=== PATIENT | female | born 1990 | race Two or more races ===

== ENCOUNTER 2018-01-07 15:28 | Emergency (ER) | payer OTHER ==
[~2018-01-07] VITALS: Ht 162.6 cm; Wt 59.0 kg
--- NOTE | 2018-01-07 16:03 | NUR ---
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 VSS TIKA RR EVEN AND UNLABORED.
--- NOTE | 2018-01-07 16:03 | NUR ---
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 VSS TIKA RR EVEN AND UNLABORED.
[2018-01-07 16:06] LABS: BASOPHILS # (AUTO) 0.2 /CMM (0.0-0.2); BASOPHILS % (AUTO) 2.2 % (0.0-2.0); EOSINOPHILS # (AUTO) 0.3 /CMM (0.0-0.7); EOSINOPHILS % (AUTO) 2.9 % (0.0-6.0); HEMATOCRIT 39 % (33-45); HEMOGLOBIN 13.4 g/dL (11.5-14.8); LYMPHOCYTES # (AUTO) 1.9 /CMM (0.8-4.8); LYMPHOCYTES % (AUTO) 21.5 % (20.0-44.0); MEAN CORPUSCULAR HEMOGLOBIN 29 PG (26.0-33.0); MEAN CORPUSCULAR HGB CONC 35 g/dl (31.0-36.0); MEAN CORPUSCULAR VOLUME 85 fL (82-100); MONOCYTES # (AUTO) 0.3 /CMM (0.1-1.30); MONOCYTES % (AUTO) 3.2 % (2.0-12.0); NEUTROPHILS # (AUTO) 5.9 /CMM (1.8-8.9); NEUTROPHILS % (AUTO) 70.2 % (43.0-81.0); PLATELET COUNT (AUTO) 359 /CMM (150-450); RDW COEFFICIENT OF VARIATION 12.6 (11.5-15.0); RED BLOOD CELL COUNT(AUTO) 4.58 MIL/uL (4.0-5.2); WHITE BLOOD COUNT (AUTO) 8.6 K/uL (4.3-11.0)
[2018-01-07 16:16] LABS: CALCIUM, SERUM 8.9 mg/dL (8.5-10.1); CARBON DIOXIDE 28 mmol/L (21-32); CHLORIDE 104 mmol/L (98-107); CREATININE 0.6 mg/dL (0.6-1.3); GLUCOSE 87 mg/dL (74-106); POTASSIUM 3.7 mmol/L (3.5-5.1); SODIUM SERUM 138 mmol/L (136-145); UREA NITROGEN, BLOOD 10 mg/dL (7-18)
[2018-01-07 16:24] LABS: TROPONIN I < 0.017 ng/mL (0.00-0.056)
[2018-01-07 16:25] LABS: D-DIMER 0.19 mg/L(FEU (0.17-0.50); INR 0.93 (0.87-1.13)
--- NOTE | 2018-01-07 17:10 | NUR ---
IV removed. Catheter intact and site benign. Pressure and 4x4 applied to site. No bleeding noted.Patient discharged to home in stable condition. Written and verbal after care instructions given. Patient verbalizes understanding of instruction.
[2018-01-07 17:12] VITALS: BP 108/68
== END 2018-01-07 17:13 | disposition home or self-care (01) ==
LOC: ER 15:31
DX: R07.89 Other chest pain (principal); R20.0 Anesthesia of skin
CPT/HCPCS: 36415; 71045-TC; 80048-TC; 84484-TC; 85025-TC; 85378-TC; 85730-TC; A4606; Z7610

== ENCOUNTER 2018-12-04 22:39 | Emergency (ER) | payer OTHER ==
[~2018-12-04] VITALS: Ht 162.6 cm; Wt 60.3 kg
--- NOTE | 2018-12-04 22:50 | NUR ---
URINE COLLECTED AND SENT TO LAB
--- NOTE | 2018-12-04 23:00 | NUR ---
PT IS AWAITING US.
[2018-12-04 23:16] LABS: BASOPHILS % (AUTO) 0.1 % (0.0-2.0); EOSINOPHILS % (AUTO) 2.2 % (0.0-6.0); HEMATOCRIT 38 % (33-45); HEMOGLOBIN 13.1 g/dL (11.5-14.8); LYMPHOCYTES # (AUTO) 2.6 /CMM (0.8-4.8); LYMPHOCYTES % (AUTO) 28.6 % (20.0-44.0); MEAN CORPUSCULAR HGB CONC 35 g/dl (31.0-36.0); MEAN CORPUSCULAR VOLUME 89 fL (82-100); MONOCYTES # (AUTO) 0.4 /CMM (0.1-1.30); MONOCYTES % (AUTO) 4.8 % (2.0-12.0); NEUTROPHILS # (AUTO) 5.9 /CMM (1.8-8.9); NEUTROPHILS % (AUTO) 64.3 % (43.0-81.0); PLATELET COUNT (AUTO) 303 /CMM (150-450); RED BLOOD CELL COUNT(AUTO) 4.26 MIL/uL (4.0-5.2); WHITE BLOOD COUNT (AUTO) 9.2 K/uL (4.3-11.0)
--- NOTE | 2018-12-04 23:30 | NUR ---
US TECH IS AT THE BEDSIDE.
--- NOTE | 2018-12-05 01:34 | NUR ---
CALLING ABHIJEET RE: US READ. RADIOLOGIST IS READING THE US NOW.
--- NOTE | 2018-12-05 02:07 | NUR ---
Patient discharged to home in stable condition. Written and verbal after care instructions given. Patient verbalizes understanding of instruction. PT AMBULATED OUT WITH A STEADY GAIT. VSS.
[2018-12-05 02:13] VITALS: BP 119/62
== END 2018-12-05 02:12 | disposition home or self-care (01) ==
LOC: ER 22:44
DX: O46.8X1 Other antepartum hemorrhage, first trimester (principal); Z60.2 Problems related to living alone; Z3A.10 10 weeks gestation of pregnancy
CPT/HCPCS: 36415 ×2; 76856; 84702; 85025; 86850; 99284; A4606; Z7610

== ENCOUNTER 2020-08-13 17:56 | Emergency (ER) | payer OTHER ==
[~2020-08-13] VITALS: Ht 162.6 cm; Wt 70.3 kg
--- NOTE | 2020-08-13 18:15 | NUR ---
ON AND OFF LOWER ABDOMINAL PAIN X 3 DAYS. ALSO C/O "FATIGUE". PATIENT A/OX4, AMBULATORY WITH STEADY GAIT, DENIES NAUSEA AND VOMITING, BREATHING EVEN AND UNLABORED, NO SOB NOTED. NEEDS ATTENDED.
[2020-08-13] MEDS ORDERED: HYDROCODONE/APAP 5/325MG TABLET ONE (18:28)
[2020-08-13] MEDS: HYDROCODONE/APAP 5/325MG TABLET PO ONE (18:36)
--- NOTE | 2020-08-13 18:36 | NUR ---
urine sent to lab
[2020-08-13 19:11] LABS: APPEARANCE,URINE Clear (CLEAR); BILIRUBIN,URINE Negative (NEGATIVE); BLOOD, URINE Negative Ery/uL (NEGATIVE); COLOR,URINE Yellow (YELLOW); KETONES,URINE Negative (NEGATIVE); LEUKOCYTE ESTERASE ,URINE Negative (NEGATIVE); NITRITE, URINE Negative (NEGATIVE); PROTEIN,URINE Negative (NEGATIVE); UGLUCOSE Negative (NEGATIVE); UROBILINOGEN,URINE 0.2 EU/dL (0.2)
--- NOTE | 2020-08-13 19:20 | NUR ---
ENDORSED TO SOFIA DAS.
--- NOTE | 2020-08-13 20:14 | NUR ---
LOADING RACK SUPERVISOR TO US AT BEDSIDE
--- NOTE | 2020-08-13 21:05 | NUR ---
JD PICKENS SPEAKING WITH DR. CORNELL
--- NOTE | 2020-08-13 21:26 | NUR ---
Patient discharged to home in stable condition. Written and verbal after care instructions given. Patient verbalizes understanding of instruction.
[2020-08-13 21:27] VITALS: BP 131/75
== END 2020-08-13 21:27 | disposition home or self-care (01) ==
LOC: EDUNIT# 17:56 → ER 18:01
DX: R10.2 Pelvic and perineal pain (principal)
CPT/HCPCS: 76856; 81001; 84703; 99284; A6403; 81000-TC

== ENCOUNTER 2025-10-18 12:02 | Emergency (ER) | payer OTHER ==
[~2025-10-18] VITALS: Ht 162.6 cm; Wt 59.0 kg
[2025-10-18 12:23] VITALS: BP 102/44; TEMP 98.3
[2025-10-18] MEDS ORDERED: AMOX500C2 PO (12:57)
[2025-10-18] MEDS ORDERED: DEXA6TAB6 PO (12:57)
[2025-10-18 13:03] VITALS: O2SAT 97
== END 2025-10-18 13:03 | disposition home or self-care (01) ==
LOC: ER 12:08
DX: J03.90 Acute tonsillitis, unspecified (principal)
CPT/HCPCS: 86403-TC; 87070-TC